=== PATIENT | female | born 1950 | race Caucasian/White ===

== ENCOUNTER 2017-07-21 11:36 | Day surgery (SDC) | payer MEDICARE ==
[~2017-07-21 11:36] MED LIST: Buffered Lidocaine 0.9% SYRIN* 5 ML/SYR SYRINGE INTRADERM ONE; Dexamethasone IV* 4 MG/ML 1 ML (4 MG) IV SLOW PU ONE; Famotidine IV* 10 MG/ML 2 ML (20 mg) IV ONE
[2017-07-21] MEDS ORDERED: Buffered Lidocaine 0.9% SYRIN* 5 ML/SYR SYRINGE ONE (11:42)
[2017-07-21] MEDS ORDERED: Famotidine IV* 10 MG/ML 2 ML (20 mg) ONE (11:42)
[2017-07-21] MEDS ORDERED: Dexamethasone IV* 4 MG/ML 1 ML (4 MG) ONE (11:42)
[2017-07-21] MEDS ORDERED: Bupivacaine 0.5% SDV PF* 30 ML VIAL ONE (12:20)
[2017-07-21] MEDS ORDERED: ceFAZolin 1 GM VIAL(*) ONE (12:20)
[2017-07-21] MEDS ORDERED: Bupivacaine 0.25% SDV* 30 ML ONE (12:20)
[2017-07-21] MEDS ORDERED: Gentamicin ADULT (*) 40 MG/ML VIAL ONE (12:20)
[2017-07-21] MEDS ORDERED: Lidocaine 1% INJ* 10 MG/ML 30 ML SDV ONE (12:20)
[2017-07-21] MEDS ORDERED: Bacitracin IV* 50,000 UNITS INJ ONE (12:21)
[2017-07-21] MEDS ORDERED: ceFAZolin 2 GM PREMIX (*) 50 ML IVPB ONE (12:24)
[2017-07-21] MEDS ORDERED: KETAMINE HCL* 50 MG/ML 10 ML VIAL ONE (12:43)
[2017-07-21] MEDS ORDERED: Midazolam* 1 MG/ML 2 ML VIAL (2 MG) ONE ×2 (12:43→13:54)
[2017-07-21] MEDS ORDERED: Propofol* 10 MG/ML 20 ML BTL IV PUSH ONE ×2 (12:45→14:37)
--- NOTE | 2017-07-21 15:10 | RAD ---
CPT II Codes: 6045F INDICATION: Imaging for removal of spinal stimulator TECHNIQUE: Intraoperative fluoroscopy was provided during spinal stimulator removal. FINDINGS: 3 spot films depict a spinal stimulator at approximately the L2 level on the initial image. Subsequent images showed no iatrogenic item on the [id number].. Fluoroscopy time: 6 seconds IMPRESSION: As above.
[2017-07-21 15:52] VITALS: BP 126/70
--- NOTE | 2017-07-22 02:50 | OP ---
OPERATIVE REPORT: DATE OF PROCEDURE: 07/21/17 - [facility] DATE OF : 48 SURGEON: Sandro Rojas MD [employer] MECHANIC: RENAY Hill ANESTHESIOLOGIST: Dr. Olson. ANESTHESIA: Local MAC. PRE-OP DIAGNOSIS: Failed back syndrome. POST-OP DIAGNOSIS: Failed back syndrome. OPERATIVE PROCEDURE: Removal of dorsal column stimulator, IPG leads and anchors. BRIEF PRE-OP NOTE: The patient is a 67-year-old female, who suffers from failed back syndrome. The patient had a permanent dorsal column stimulator placed approximately 2 years ago for failed back syndrome. She had excellent relief with the stimulator and has been doing very well. Unfortunately, the patient has had some neurological issues including garbled speech and right arm weakness and is presently being worked up for possible ALS. As part of the workup, they are requesting multiple MRIs, which cannot be done with the dorsal column stimulator in place. The patient was seen last week in the office and is scheduled today urgently to have the stimulator removed, the leads and IPG. This way she could follow through with her studies this coming Thursday. I had a chance to discuss the procedure, the risks, benefits, and alternatives of therapy with the patient and her daughter and informed consent was obtained. ESTIMATED BLOOD LOSS: Less than 30 mL. DESCRIPTION OF PROCEDURE: The patient was brought to the operative suite, placed prone on the operative table. Her back was prepped and draped in the usual sterile fashion. Using 1% lidocaine mixed with 0.25% Marcaine, I anesthetized the skin and subcutaneous tissues over the IPG in the left flank. A 15 blade was used to make a skin incision and dissection was done with Metzenbaum scissors to open up the IPG pocket. The generator was removed and cut from the leads and placed on the back table. I then identified the midline incision and used fluoroscopy to identify the leads and the anchor placement. I anesthetized the skin and subcutaneous tissues over the previous incision with 1% lidocaine and 0.25% Marcaine. I then used a 15 blade and dissected down to the scar tissue surrounding the anchors. Then using Metzenbaum scissors , careful dissection was done to cut through the adhesions and identified the anchors bilaterally. The silk sutures were cut and removed and both anchors and leads were removed from the epidural space. All wires, leads, and anchors were removed in their entirety. The area was then copiously irrigated with antibiotic irrigation. Terence was used for hemostasis. I then irrigated the wounds again copiously with antibiotic irrigation. I closed the space in the pocket with interrupted 3-0 Polysorb sutures, then closed the subcutaneous tissues with interrupted 2-0 Polysorb sutures and a 4-0 Polysorb with subcuticular suture was used to close the skin. The midline incision was then irrigated again. I confirmed hemostasis with Bovie and then closed the space with 2-0 Polysorb suture. The subcutaneous tissues were closed with 3-0 interrupted Polysorb sutures and the skin closed with a running subcuticular 4- 0 Polysorb. DermaFlex was used with Steri-Strips and sterile dressings applied. The patient will follow up in the office as scheduled. [id number]/[facility] #: [id number]
== END 2017-07-21 16:04 | disposition home or self-care (01) ==
LOC: OR 11:36
PROVIDERS: ATTEND Anesthesiology Pain Medicine
DX: M96.1 Postlaminectomy syndrome, not elsewhere classified (principal); R29.818 Other symptoms and signs involving the nervous system; Z87.891 Personal history of nicotine dependence; I10 Essential (primary) hypertension; E78.5 Hyperlipidemia, unspecified; R13.10 Dysphagia, unspecified; G25.81 Restless legs syndrome
CPT/HCPCS: 77003; 88300; A9270-GY; J0690; J1100; J1580; J2001; J2250; J2704